=== PATIENT | male | born 1975 | race Caucasian/White ===

== ENCOUNTER 2017-05-04 01:17 | Emergency (ER) | payer BC ==
[2017-05-04 01:23] VITALS: BP 114/66; PULSE 51; RESP 18; O2SAT 99
--- NOTE | 2017-05-04 01:50 | EDPHY ---
H & P Stated Complaint: L FLANK/SIDE PAIN FOR 4 DAYS Time Seen by Provider: 05/04/17 01:37 HPI/ROS: Chief Complaint: Left flank pain HPI: 41-year-old male presenting with 4 days of pain in his left side at the lower edge of his ribs. Patient states that it is worse when he is laying there at night and is unable to rest. It is constant. He states that he notices it less during the day. He has never had any symptoms like this before. No recent falls or injuries. No chest pain or shortness of breath. No nausea or vomiting or diarrhea. No urinary urgency or frequency. No discoloration in his urine. He is not taking any medication. ROS: 10 point Review of Systems is negative except as noted in the HPI. PMH: None Social History: No smoking, no alcohol, no recreational drug use Family History: non-contributory Physical Exam: Gen: Awake, Alert, No Distress HEENT: Nose: no rhinorrhea Eyes: PERRLA, EOMI Mouth: Moist mucosa Neck: Supple, no JVD Chest: There is reproducible tenderness in the mid axillary line at the lower rib margin reproducing his presenting complaint, lungs clear to auscultation Heart: S1, S2 normal, no murmur Abd: Soft, non-tender, no guarding, abdomen is completely soft and benign with no reproducible tenderness Back: no CVA tenderness, no midline tenderness Ext: no edema, non-tender Skin: no rash Neuro: CN II-XII intact, Sensation grossly intact, Strength 5/5 in bilateral upper and lower extremities - Personal History Current Tetanus/Diphtheria Vaccine: Yes Current Tetanus Diphtheria and Acellular Pertussis (TDAP): Yes - Medical/Surgical History Hx Asthma: No Hx Chronic Respiratory Disease: No Hx Diabetes: No Hx Cardiac Disease: No Hx Renal Disease: No Hx Cirrhosis: No Hx Alcoholism: No Hx HIV/AIDS: No Hx Splenectomy or Spleen Trauma: No Other PMH: DENIES - Social History Smoking Status: Never smoked Constitutional: Initial Vital Signs Heart Rate 51 L 05/04/17 01:20 Respiratory Rate 18 05/04/17 01:20 Blood Pressure 114/66 05/04/17 01:20 O2 Sat (%) 99 05/04/17 01:20 O2 Delivery Mode Room Air Allergies/Adverse Reactions: No Known Allergies Allergy (Unverified 05/04/17 01:23) Home Medications: Medication Instructions Recorded NK [No Known Home Meds] 05/04/17 Medical Decision Making ED Course/Re-evaluation: Urinalysis is negative. 41-year-old male who has a completely soft benign abdomen, no CVA tenderness. He has got reproducible left lateral rib pain. Symptoms consistent with chest wall pain. Will give him ibuprofen. Follow up with primary care physician referral, return for worsening. No evidence of acute intra-abdominal process at this time. No evidence of pneumonia, pneumothorax, or significant intrathoracic process either. - Data Points Laboratory Results: 05/04/17 01:35 Urine Color YELLOW Urine Appearance CLEAR Urine pH 5.0 (5.0-7.5) Ur Specific [place] 1.015 (1.002-1.030) Urine Protein NEGATIVE (NEGATIVE) Urine Ketones NEGATIVE (NEGATIVE) Urine Blood NEGATIVE (NEGATIVE) Urine Nitrate NEGATIVE (NEGATIVE) Urine Bilirubin NEGATIVE (NEGATIVE) Urine Urobilinogen NEGATIVE EU EU (0.2-1.0) Ur Leukocyte Esterase NEGATIVE (NEGATIVE) Urine Glucose NEGATIVE (NEGATIVE) Medications Given: Discontinued Medications Ibuprofen (Motrin) 600 mg PO EDNOW ONE Stop: 05/04/17 02:10 Last Admin: 05/04/17 02:19 Dose: 600 mg Departure - Departure Disposition: Home, Routine, Self-Care Clinical Impression: Rib pain Condition: Good Instructions: Chest Wall Pain (ED) Additional Instructions: You may take ibuprofen, 600 mg 3 times a day as needed for pain. He may alternate this with acetaminophen, 1000 mg 3 times a day. Follow up with a primary care physician in 3-4 days if symptoms are not improving. Return to the emergency depart for increasing pain, shortness of breath, cough, fevers, chills, or any other concerns. Referrals: NONE *PRIMARY CARE P,. [Primary Care Provider] - As per Instructions Arnol Mcguire MD [Medical Doctor] - As per Instructions
[2017-05-04 01:59] LABS: COLOR YELLOW; LEUKOCYTE ESTERASE,URINE NEGATIVE (NEGATIVE); NITRITE,URINE NEGATIVE (NEGATIVE)
[2017-05-04] MEDS ORDERED: IBUPROFEN 600 MG TAB PO ONE (02:09)
== END 2017-05-04 02:19 | disposition home or self-care (01) ==
DX: R07.81 Pleurodynia (principal)